=== PATIENT | male | born 2000 | race Caucasian/White ===

== ENCOUNTER 2021-05-17 15:18 | Emergency (ER) | payer SELFPAY ==
[2021-05-17] MEDS ORDERED: Sodium Chloride 0.9% 1,000 ML IV ONE (15:27)
[2021-05-17] MEDS ORDERED: Meclizine 25 MG Tab PO ONE (15:34)
--- NOTE | 2021-05-17 16:45 | CT ---
INDICATION: Dizziness and confusion. TECHNIQUE: CT head without contrast. COMPARISON: None. FINDINGS: CSF spaces: Within normal limits for age. Brain parenchyma and extra-axial spaces: The thompson-white differentiation is normal. No sign of mass, hemorrhage, or midline shift. No extra-axial fluid collection. Skull base and calvarium: The visualized paranasal sinuses and mastoid air cells demonstrate no acute or significant findings. The visualized orbits are grossly unremarkable. No skull fractures. A metallic BB is present in the right frontal scalp. IMPRESSION: Unremarkable noncontrast head CT. No finding to explain dizziness or confusion. Please note that all CT scans at this facility use dose modulation, iterative reconstruction, and/or weight-based dosing when appropriate to reduce radiation dose to as low as reasonably achievable. Dictated by Josh Frances MD @ 05/17/2021 4:44:48 PM (Electronically Signed)
[2021-05-17 17:44] LABS: BLOOD UREA NITROGEN,BUN 16 mg/dL (7.0-18.0); CARBON DIOXIDE,CO2 25.1 mmol/L (21.0-32.0); CHLORIDE,CL 104 mmol/L (98-107); GLUCOSE RANDOM 78 mg/dL (74-106); POTASSIUM,K 3.5 mmol/L (3.5-5.1); SODIUM,NA 143 mmol/L (136-148)
== END 2021-05-17 18:04 | disposition home or self-care (01) ==
LOC: MW.ED 15:18
DX: R42 Dizziness and giddiness (principal)
CPT/HCPCS: 36415; 70450; 80053; 81003; 82375; 85025; 93005; 99284; A9270; J7030